=== PATIENT | male | born 1980 | race Caucasian/White ===

== ENCOUNTER 2017-06-20 15:54 | Emergency (ER) | payer SELFPAY ==
[~2017-06-20] VITALS: Ht 177.8 cm; Wt 75.5 kg
[2017-06-20 16:40] VITALS: BP 140/91
--- NOTE | 2017-06-20 20:10 | NUR ---
PT TAKEN TO [facility]
--- NOTE | 2017-06-20 20:16 | NUR ---
c/o right flank burning type pain radiating r hip x 2 days---- denies dysuria hx---denies rx---none
[2017-06-20] MEDS ORDERED: DIAZEPAM 5 MG TAB PO ONE (20:45)
[2017-06-20] MEDS ORDERED: NACL 0.9% 1,000 ML IV ONE (20:45)
[2017-06-20] MEDS ORDERED: KETOROLAC 30 MG/ML VIAL IVP ONE (20:45)
[2017-06-20 21:11] LABS: BASOPHILS # (AUTO) 0.4 K/uL (0.00-0.22); EOSINOPHILS # (AUTO) 0.2 K/uL (0-0.4); HEMATOCRIT 44.9 % (36-52); HEMOGLOBIN 14.6 g/dL (12.0-18.0); LYMPHOCYTES # (AUTO) 1.8 K/uL (2.0-11.5); MEAN CORPUSCULAR HEMOGLOBIN 28 pg (27-31); MEAN CORPUSCULAR HGB CONC 33 g/dL (33-37); MEAN CORPUSCULAR VOLUME 86 fL (80-94); MONOCYTES # (AUTO) 0.6 K/uL (0.8-1.0); NEUTROPHILS # (AUTO) 4.1 K/uL (1.8-7.7); PLATELET COUNT (AUTO) 170 K/uL (140-450); RED BLOOD CELL COUNT(AUTO) 5.23 MIL/uL (4.20-6.10); RED CELL DISTRIBUTION WIDTH 12.6 % (11.6-13.7); WHITE BLOOD COUNT (AUTO) 7.1 K/uL (4.8-10.8)
--- NOTE | 2017-06-20 21:20 | NUR ---
IV FLUIDS INFUSING WELL, PT IN NAD. WAITING ONLAB TEST RESULTS.
--- NOTE | 2017-06-20 21:22 | NUR ---
PT GIVEN URINE CUP, AWARE WE NEED URINE SPECIMEN.
[2017-06-20 21:31] LABS: ANION GAP 11.1 (8-16); CARBON DIOXIDE 29.9 mmol/L (21-32)
[2017-06-20 21:38] LABS: ALBUMIN 4.2 g/dL (3.4-5.0); TOTAL BILIRUBIN 1.7 mg/dL (0.0-1.0)
--- NOTE | 2017-06-20 21:50 | NUR ---
IV FLUIDS COMPLETED, [PT UP TO BATHROOM
--- NOTE | 2017-06-20 22:19 | NUR ---
PT REFUSING CT SCAN , CONCERNED ABOUT COST. ER INFORMED.
[2017-06-20 22:22] LABS: APPEARANCE,URINE CLEAR (CLEAR); BILIRUBIN,URINE NEGATIVE (NEGATIVE); BLOOD, URINE NEGATIVE (NEGATIVE); COLOR,URINE YELLOW (YELLOW); LEUKOCYTE ESTERASE ,URINE NEGATIVE (NEGATIVE); NITRITE, URINE NEGATIVE (NEGATIVE); PH,URINE 5.5 (5.0-9.0); UGLUCOSE NEGATIVE (NEGATIVE)
[2017-06-20 22:52] VITALS: BP 133/87
== END 2017-06-20 22:53 | disposition home or self-care (01) ==
LOC: MED 15:54
DX: R10.9 Unspecified abdominal pain (principal); Z87.442 Personal history of urinary calculi
CPT/HCPCS: 36415; 80053; 81003; 83690; 85025; 96361; 96374; 99284; J1885; J7030